=== PATIENT | female | born 1985 | race Caucasian/White ===

== ENCOUNTER 2019-02-16 20:37 | Emergency (ER) | payer BC ==
[2019-02-16 20:57] VITALS: BP 160/99
[2019-02-16] MEDS ORDERED: Sulfamethox/Trimethoprim DS 800/160* TAB PO ONE (21:17)
--- NOTE | 2019-02-16 21:24 | ED ---
Throat Pain/Nasal Congestion - HPI Summary HPI Summary: 33 yr old female with the complaint of right nostril pain, mild swelling. The patient was digging at an ingrown hair with tweezers on the lateral part of the right nostril. She has some swelling to the inside of the nostril with a pimple. She has some pain lateral right side of nose. No headache, no occular pain. No facial redness or swelling. No fever or chills. - History of Current Complaint Chief Complaint: [place] Time Seen by Provider: 02/16/19 21:07 - Allergies/Home Medications Allergies/Adverse Reactions: Allergies Allergy/AdvReac Type Severity Reaction Status Date / Time Penicillins Allergy Hives Verified 02/16/19 20:57 Home Medications: Home Medications Escitalopram * [Lexapro *] 20 mg PO DAILY 02/16/19 [History Confirmed 02/16/19] Metoprolol Tartrate TAB* [Lopressor TAB*] 25 mg PO DAILY 02/16/19 [History Confirmed 02/16/19] PMH/Surg Hx/FS Hx/Imm Hx Endocrine/Hematology History: Denies: Hx Diabetes, Hx Thyroid Disease Cardiovascular History: Reports: Hx Hypertension Respiratory History: Denies: Hx Asthma, Hx Chronic Obstructive Pulmonary Disease (COPD) GI History: Denies: Hx Ulcer Infectious Disease History: No Infectious Disease History: Denies: Hx Hepatitis, Hx Human Immunodeficiency Virus (HIV), Traveled Outside the [place] in Last 30 Days - Family History Known Family History: Positive: Hypertension - Social History Occupation: Employed Full-time - as ICU nurse at [employer] Alcohol Use: None Substance Use Type: Reports: None Smoking Status (MU): Light Every Day Tobacco Smoker Review of Systems Constitutional: Negative Positive: Other - right nostril pain. All Other Systems Reviewed And Are Negative: Yes Physical Exam Triage Information Reviewed: Yes Vital Signs On Initial Exam: Initial Vitals Temp Pulse Resp BP Pulse Ox 98.9 F 82 18 160/99 100 02/16/19 20:52 02/16/19 20:52 02/16/19 20:52 02/16/19 20:52 02/16/19 20:52 Vital Signs Reviewed: Yes Appearance: Positive: Well-Appearing, No Pain Distress Skin: Positive: Warm, Skin Color Reflects Adequate Perfusion Head/Face: Positive: Normal Head/Face Inspection Eyes: Positive: Normal, EOMI, SABINA ENT: Positive: Pharynx normal, TMs normal, Other - right nostril with hair follicle inflamed with sts. She has good air movement through nostril. No obvious redness to nose skin or to the face. No STS to the face. Neck: Positive: Nontender Cardiovascular: Positive: RRR. Negative: Murmur Abdomen Description: Negative: Distended Musculoskeletal: Positive: Strength/ROM Intact Neurological: Positive: Sensory/Motor Intact, Alert, Oriented to Person Place, Time, CN Intact II-III, Normal Gait, Speech Normal Psychiatric: Positive: Normal Diagnostics - Vital Signs Vital Signs Temp Pulse Resp BP Pulse Ox 02/16/19 20:52 98.9 F 82 18 160/99 100 - Laboratory Lab Statement: Any lab studies that have been ordered have been reviewed, and results considered in the medical decision making process. EENT Course/Dx - Course Course Of Treatment: 33 yr old with ingrown hair and folliculitis inside right nostril. - Diagnoses Provider Diagnoses: Nasal folliculitis, Hypertension Discharge - Sign-Out/Discharge Documenting (check all that apply): Patient Departure All imaging exams completed and their final reports reviewed: No Studies - Discharge Plan Condition: Good Disposition: HOME Prescriptions: Sulfamethox/Trimethoprim DS* [Bactrim DS 800/160 TAB*] 1 tab PO BID #20 tab Patient Education Materials: Cellulitis (ED), Hypertension (ED) Referrals: Aziza Trujillo NP [Primary Care Provider] - 3 Days - Billing Disposition and Condition Condition: GOOD Disposition: Home
== END 2019-02-16 21:26 | disposition home or self-care (01) ==
LOC: UCCORT 20:37
DX: L73.8 Other specified follicular disorders (principal); I10 Essential (primary) hypertension; F17.200 Nicotine dependence, unspecified, uncomplicated
CPT/HCPCS: 99202; A9270-GY; G0463

== ENCOUNTER 2019-08-13 19:34 | Emergency (ER) | payer BC ==
[2019-08-13 19:56] VITALS: BP 155/92
--- NOTE | 2019-08-13 19:57 | UC ---
Bite Injury/Animal HPI - HPI Summary HPI Summary: Patient is a 34yo female presenting with dog bite to R thumb that happened last night all she was trying to stop a fight between her own dogs. States her dogs are up-to-date on vaccines. Patient states one puncture wound on palmar surface of thumb that bled immediately last night but stopped quickly. Denies any further drainage. Patient states she got tetanus shot updated yesterday at work. States she is coming here now because she is having a difficult time bending the thumb d/t pain and wants to make sure it is not broken. Notes swelling. Denies bruising. Denies numbness and tingling. - History of Current Complaint Stated Complaint: DOG BITE, RIGHT THUMB INJURY Hx Obtained From: Patient Hx Last Menstrual Period: 08/10/19 Pain Intensity: 8 Pain Scale Used: 0-10 Numeric - Allergies/Home Medications Allergies/Adverse Reactions: Allergies Allergy/AdvReac Type Severity Reaction Status Date / Time Penicillins Allergy Hives Verified 08/13/19 19:50 PMH/Surg Hx/FS Hx/Imm Hx Previously Healthy: Yes - Surgical History Surgical History: None - Family History Known Family History: Positive: Hypertension - Social History Alcohol Use: None Substance Use Type: None Smoking Status (MU): Former Smoker When Did the Patient Quit Smoking/Using Tobacco: Jul 2019 Household Exposure Type: Cigarettes - Immunization History Most Recent Tetanus Shot: 08/12/19 Review of Systems All Other Systems Reviewed And Are Negative: Yes Constitutional: Positive: Negative. Negative: Fever, Chills Skin: Positive: Other - dog bite to R thumb Respiratory: Positive: Negative Cardiovascular: Positive: Negative Gastrointestinal: Positive: Negative Musculoskeletal: Positive: Arthralgia - R thumb, Decreased ROM - R thumb, Edema - R thumb Neurological: Negative: Paresthesia, Numbness Physical Exam Triage Information Reviewed: Yes Appearance: Well-Appearing, No Pain Distress, Well-Nourished Vital Signs: Initial Vital Signs Temp 97.9 F 08/13/19 19:51 Pulse 65 08/13/19 19:51 Resp 16 08/13/19 19:51 BP 155/92 08/13/19 19:51 Pulse Ox 100 08/13/19 19:51 Vital Signs Reviewed: Yes Eyes: Positive: Conjunctiva Clear ENT: Positive: Hearing grossly normal Neck: Positive: Supple Respiratory: Positive: No respiratory distress Cardiovascular: Positive: Pulses Normal, Brisk Capillary Refill - <2 sec Musculoskeletal: Positive: ROM Limited @ - R thumb flexion d/t pain, Edema @ - R thumb IP joint, Other: - tenderness to palpation of IP joint of R thumb Neurological Exam: Other - sensation grossly intact Neurological: Positive: Alert Psychological: Positive: Age Appropriate Behavior Skin: Positive: Other - small puncture wound noted on palmar surface of R thumb below IP joint. nonbleeding, nondraining. no surrounding erythema Bite Injury Course/Dx - Course Course Of Treatment: Discussed initial negative read of radiographs and that she would be notified with any abnormalities found on final report in the morning. Patient received doxycycline and metronidazole for infection prevention d/t allergy to penicillins. Instructed to apply warm compresses/soaks. Educated on s/s of infection and instructed to go to ED if any occur. Patient voiced understanding and agreed with treatment plan. - Differential Dx/Diagnosis Provider Diagnosis: Dog bite of right thumb Discharge ED - Sign-Out/Discharge Documenting (check all that apply): Patient Departure All imaging exams completed and their final reports reviewed: No - Discharge Plan Condition: Stable Disposition: HOME Prescriptions: DOXYcycline CAP(*) [DOXYcycline 100MG CAP(*)] 100 mg PO BID #9 cap metroNIDAZOLE * [Flagyl] 500 mg PO Q8H #14 tablet Patient Education Materials: Animal Bite (ED) Referrals: Aziza Trujillo NP [Primary Care Provider] - If Needed Additional Instructions: As discussed, your radiograph was reviewed by the provider that treated you tonight. It will be read by a radiologist tomorrow morning. If there is a finding other than that discussed with you today, you will receive a call from a care provider. Take doxycycline and metronidazole as prescribed to prevent infection. Do not consume any alcohol while taking metronidazole, as it may cause severe GI upset. You received the first dose of each here in the clinic. The remainder of your prescription has been sent to your pharmacy. Apply warm soaks to the area 2-3 times daily. Follow up with your primary care provider if symptoms persist. Go to the emergency room with any new or worsening symptoms. - Billing Disposition and Condition Condition: STABLE Disposition: Home
[2019-08-13] MEDS ORDERED: metroNIDAZOLE TAB* 250 MG PO ONE ×2 (20:29→20:42)
[2019-08-13] MEDS ORDERED: DOXYcycline CAP(*) 100 MG PO ONE (20:29)
--- NOTE | 2019-08-14 07:18 | UC ---
- Progress Note Progress Note: xray report right thumb : IMPRESSION: SOFT TISSUE SWELLING, NO EVIDENCE FOR FRACTURE. Course/Dx - Diagnoses Provider Diagnoses: Dog bite of right thumb Discharge ED - Sign-Out/Discharge Documenting (check all that apply): Patient Departure All imaging exams completed and their final reports reviewed: Yes - Discharge Plan Condition: Stable Disposition: HOME Prescriptions: DOXYcycline CAP(*) [DOXYcycline 100MG CAP(*)] 100 mg PO BID #9 cap metroNIDAZOLE * [Flagyl] 500 mg PO Q8H #14 tablet Patient Education Materials: Animal Bite (ED) Forms: *School Release Referrals: Aziza Trujillo NP [Primary Care Provider] - If Needed Additional Instructions: As discussed, your radiograph was reviewed by the provider that treated you tonight. It will be read by a radiologist tomorrow morning. If there is a finding other than that discussed with you today, you will receive a call from a care provider. Take doxycycline and metronidazole as prescribed to prevent infection. Do not consume any alcohol while taking metronidazole, as it may cause severe GI upset. You received the first dose of each here in the clinic. The remainder of your prescription has been sent to your pharmacy. Apply warm soaks to the area 2-3 times daily. Follow up with your primary care provider if symptoms persist. Go to the emergency room with any new or worsening symptoms. - Billing Disposition and Condition Condition: STABLE Disposition: Home
== END 2019-08-13 20:46 | disposition home or self-care (01) ==
LOC: UCCORT 19:34
DX: S61.051A Open bite of right thumb without damage to nail, initial encounter (principal); M79.89 Other specified soft tissue disorders; Z88.0 Allergy status to penicillin; W54.0XXA Bitten by dog, initial encounter; Y92.9 Unspecified place or not applicable; Z87.891 Personal history of nicotine dependence
CPT/HCPCS: 99213; A9270-GY; G0463